=== PATIENT | male | born 1965 | race Caucasian/White ===

== ENCOUNTER 2019-05-07 14:27 | Emergency (ER) ==
[2019-05-07 14:33] VITALS: BP 155/105; TEMP 97.4; BMI 37.5
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
== END 2019-05-07 17:58 | disposition home or self-care (01) ==
LOC: ED 14:27
DX: M54.2 Cervicalgia (principal); V89.2XXA Person injured in unspecified motor-vehicle accident, traffic, initial encounter; Z72.0 Tobacco use
CPT/HCPCS: 99283

== ENCOUNTER 2019-05-12 09:36 | Outpatient (CLI) | END 2019-05-12 09:37 | disposition home or self-care (01) | LOC: RHC-LAB 09:36 → FCC-LAB 09:37 | PROVIDERS: ATTEND Family Medicine | DX: M54.2 Cervicalgia (principal) | CPT/HCPCS: 80306 ==

== ENCOUNTER 2019-05-23 13:00 | Outpatient (RCR) | payer OTHER ==
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
== END 2019-05-24 23:59 ==
PROVIDERS: ATTEND Family Medicine
DX: M54.2 Cervicalgia (principal); M25.511 Pain in right shoulder

== ENCOUNTER 2020-11-08 11:29 | Observation (INO) ==
[2020-11-08 11:42] VITALS: BMI 43.5
[2020-11-08] MEDS ORDERED: LASIX IVP STA (12:30)
--- NOTE | 2020-11-08 12:31 | ED.PDOC ---
General ED Provider: Dr. ANA LILIA SCRUGGS MD Chief Complaint: Shortness of Air Stated Complaint: shortness of breath Time Seen by Provider: 11/08/20 12:22 Mode of Arrival: Wheelchair Information Source: Patient Primary Care Provider: NAKIA JEAN-BAPTISTE MD Nursing and Triage Documentation Reviewed and Agree: Yes Does patient meet sepsis criteria?: No System Inflammatory Response Syndrome: Pulse >90 BPM Sepsis Protocol: For patient's 13 years and over: Temp is 96.8 and below OR 101 and greater Pulse >90 BPM Resp >20/minute Acutely Altered Mental Status Are patient's symptoms suggestive of a new infection, such as: -Pneumonia -Skin, Soft Tissue -Endocarditis -UTI -Bone, Joint Infection -Implantable Device -Acute Abdominal Infection -Wound Infection -Meningitis -Blood Stream Catheter Infection -Unknown Respiratory Complaint Exam Shortness of Air Complaint/Exam Onset/Duration: ~1 week ago Symptoms Are: Worse Timing: Constant Initial Severity: Mild Current Severity: Moderate Character: Reports Dyspnea at rest, Dyspnea on exertion and Orthopnea Aggravating: Reports Movement and Recumbent position Alleviating: Denies None (diuretics) Associated Signs and Symptoms: Reports Edema (bilateral lower extremities, abdomen) Related History: Reports Similar episode (2x previously, ~1 year ago (3 weeks in [place] and 9 days in [facility] for CHF exacerbation)) and Obesity History of Healthcare-Acquired Pneumonia: No Pulmonary Embolism Risk Factors: Reports None Cardiac Risk Factors: Reports Elevated lipids, Diabetes, Hypertension and CHF Pseudomonas Risk Factors: Reports None Home Oxygen Use: No Stridor Present: No Tracheal Deviation: No Subcutaneous Emphysema: No Accessory Muscle Use: No Retractions: Not Present Unable to Speak Full Sentences: No Leg Swelling: Yes Review of Systems Review Of Systems Constitutional: Reports No symptoms Respiratory: Reports Short of air Cardiac: Reports Edema All Other Systems: Reviewed and Negative [facility] Medical History Congestive heart failure Diabetes mellitus Elevated cholesterol History of gastroesophageal reflux (GERD) Hypertension Impetigo Thyroid dysfunction Family History Mother Cardiac disease FATHER Diabetes SISTER Diabetes Other Lupus Social History Smoking and tobacco status: Never smoker Smokeless tobacco user: chewing tobacco Passive smoking exposure: No Quit status: considering quitting Second hand smoke exposure: No Smoking risk assessment performed: No Alcohol intake: never Counseling given: No Counseling provided: none Substance use type: does not use Counseling given: No Counseling provided: none Special jazmyn needs: No Agree to transfusion: Yes Adopted: No Caregiver/support person: No Foster care: No Household members: significant other and family Housing: house Marital status: S SINGLE Lives independently: Yes Daycare: no daycare Number of children: 2 Number of grandchildren: 2 Highest education level completed: 9th grade Financial difficulty paying for basics: somewhat hard service: No senior care: No Current occupational status: disabled Current occupational exposures/hazards: No Surgical History Implantation of cardiac pacemaker Physical Exam Physical Exam Appearance: Reports Well-appearing and Obese Ill-appearing: Moderate Pain Distress: None Eyes: Reports CARLA, EOMI and Conjunctiva clear ENT: Reports Nose normal Neck: Nonsupple (age-appropriate) Respiratory: Reports Airway patent, Breath sounds equal, Breath sounds diminished and Crackles Cardiovascular: Reports RRR GI/: Reports Soft, Nontender, Bowel sounds normal and Other (swelling with mild pitting) Musculoskeletal: Reports Normal strength, ROM intact and Edema (bilateral LEs to the knee) Skin: Reports Warm, Dry and Normal color Neurological: Reports Sensation intact, Motor intact, Cranial nerves intact, Alert and Oriented Psychiatric: Reports Affect appropriate and Mood appropriate Critical Care Note Critical Care Note Total Critical Care Time (mins): 0 Course Course Hematology/Chemistry: 11/08/20 12:10 11/08/20 12:10 Orders, Labs, Meds: Lab Review 11/08/20 11/08/20 11/08/20 12:10 12:10 15:50 WBC 7.39 RBC 5.89 Hgb 16.6 Hct 52.6 H MCV 89.3 MCH 28.2 MCHC 31.6 L RDW Coeff of Vira 14.6 Plt Count 102 L Immature Gran % (Auto) 0.3 Neut % (Auto) 80.6 H Lymph % (Auto) 11.8 [place] % (Auto) 6.5 Eos % (Auto) 0.5 Baso % (Auto) 0.3 Neut # (Auto) 6.0 Lymph # (Auto) 0.9 [place] # (Auto) 0.5 Eos # (Auto) 0.0 Baso # (Auto) 0.0 Immature Gran # (Auto) 0.0 Sodium 132.4 L Potassium 3.07 L Chloride 91.1 L Carbon Dioxide 30.4 H Anion Gap 13.97 BUN 29.0 H Creatinine 1.29 H Estimated GFR (MDRD) 58.00 BUN/Creatinine Ratio 22.48 Glucose 517.2 H* Calcium 8.65 Magnesium 1.82 Total Bilirubin 0.89 AST 24.4 ALT 17.4 Alkaline Phosphatase 131.2 H NT-Pro-B Natriuret Pep 9570.000 H Total Protein 6.90 Albumin 3.67 Globulin 3.23 Albumin/Globulin Ratio 1.13 Adenovirus (PCR) Not detected B. pertussis DNA (PCR) Not detected B.parapertussis DNA PCR Not detected C. pneumoniae DNA (PCR) Not detected Coronavirus OC43 (PCR) Not detected Coronavirus HKU1 (PCR) Not detected Coronavirus 229E (PCR) Not detected Coronavirus NL63 (PCR) Not detected Human Metapneumovir PCR Not detected Influenza Type A (PCR) Not detected Influenza B (RT-PCR) Not detected M. pneumoniae (PCR) Not detected Parainfluenza 1 (PCR) Not detected Parainfluenza 2 (PCR) Not detected Parainfluenza 3 (PCR) Not detected Parainfluenza 4 (PCR) Not detected RSV (PCR) Not detected Entero/Rhino (PCR) Not detected SARS-CoV-2 (PCR) Not detected Orders Category Date Time Status ADMIT OBSERVATION [PLACE PATIENT OBSERVATION] .TO ADMISSION 11/08/20 15:53 Active MEDSURG (MONITORED BED) ACTIVITY .BR with BRP CARE 11/08/20 15:39 Active BLOOD GLUCOSE MONITORING 0630,1100,1700,2100 CARE 11/08/20 15:44 Active GIVE HS SNACK 2100 CARE 11/08/20 15:41 Active INTAKE & OUTPUT Q8HR CARE 11/08/20 15:39 Active TELEMETRY MONITORING TELE CARE 11/08/20 15:54 Active VITAL SIGNS Q8HR CARE 11/08/20 15:39 Completed VTE PREVENTION .SCD On AM/Off PM CARE 11/08/20 15:44 Active VTE PREVENTION .JEISON 24 Hours CARE 11/08/20 15:44 Active ADA 1800 REGIS. DIET DIETARY 11/08/20 Dinner Ordered HS SNACK DIETARY 11/08/20 Dinner Ordered ED ACCUCHECK ASSESSMENT .ONCE EMERGENCY 11/08/20 14:38 Active BASIC METABOLIC PANEL DAILY@0600 LAB 11/09/20 06:00 Ordered BASIC METABOLIC PANEL DAILY@0600 LAB 11/10/20 06:00 Ordered CBC W/ AUTO DIFF DAILY@0600 LAB 11/09/20 06:00 Ordered CBC W/ AUTO DIFF DAILY@0600 LAB 11/10/20 06:00 Ordered CBC W/ AUTO DIFF Stat LAB 11/08/20 12:10 Completed COMPREHENSIVE METABOLIC PANEL Stat LAB 11/08/20 12:10 Completed MAGNESIUM Stat LAB 11/08/20 12:10 Completed NT-PROBNP Stat LAB 11/08/20 12:10 Completed RESPIRATORY PANEL 2.1 (PCR) Stat LAB 11/08/20 15:50 Completed Enoxaparin Sodium [Lovenox] MEDS 11/09/20 09:00 Active 40 mg SUBCUT DAILY Furosemide [Lasix] MEDS 11/08/20 12:30 Discontinued 40 mg IVP ONCE STA Insulin Regular, Human [Humulin R] MEDS 11/08/20 13:13 Discontinued 16 unit IVP ONCE STA Insulin Regular, Human [Humulin R] MEDS 11/08/20 14:42 Discontinued 6 unit SUBCUT ONCE STA Potassium Chloride [K-Dur] MEDS 11/08/20 13:18 Discontinued 40 meq PO ONCE STA Sodium Chloride 0.9% [Sodium Chloride] 1,000 ml MEDS 11/08/20 16:00 Active IV 75 mls/hr RESUSCITATION STATUS Routine OTHERS 11/08/20 15:39 Ordered CHEST, 2 VIEWS PA & LAT Stat RADS 11/08/20 12:30 Completed Medications Generic Name Dose Route Start Last Admin Trade Name Freq PRN Reason Stop Dose Admin Aspirin 81 mg 11/10/20 09:00 Aspirin 81 Mg Tab.Chew PO EVERY OTHER DAY BELA Carvedilol 25 mg 11/08/20 21:00 11/08/20 21:08 Carvedilol 12.5 Mg Tablet PO 25 mg BID BELA Administration Clonidine 0.05 mg 11/08/20 21:00 Clonidine Hcl 0.1 Mg Tablet PO TID PRN SBP>160 Enoxaparin Sodium 40 mg 11/09/20 09:00 Enoxaparin Sodium 40 Mg/0.4 Ml Syr SUBCUT DAILY BELA Furosemide 20 mg 11/08/20 21:00 11/08/20 21:08 Furosemide Inj 20 Mg/2 Ml Vial IVP 20 mg Q6H BELA Administration Gabapentin 300 mg 11/08/20 21:00 11/08/20 21:09 Gabapentin 300 Mg Capsule PO 300 mg TID BELA Administration Sodium Chloride 1,000 mls @ 75 mls/hr 11/08/20 16:00 11/08/20 18:53 Sodium Chloride IV 75 mls/hr .[id number] BELA Administration Insulin Glargine 70 unit 11/09/20 09:00 Insulin Glargine,Hum.Rec.Anlog 100 Units/Ml SUBCUT DAILY BELA Insulin Human Regular 0 unit 11/08/20 18:15 11/08/20 19:03 Insulin Regular, Human 100 Unit/Ml (3ml) Vial SUBCUT 4 unit PRN PRN Administration Hyperglycemia Protocol Levothyroxine Sodium 150 mcg 11/09/20 06:30 Levothyroxine Sodium 50 Mcg Tablet PO DAILY@0630 BELA Metformin HCl 1,000 mg 11/08/20 21:00 11/08/20 21:08 Metformin Hcl 500 Mg Tablet PO 1,000 mg BID BELA Administration Pravastatin Sodium 80 mg 11/09/20 09:00 Pravastatin Sodium 40 Mg Tablet PO DAILY BELA Sacubitril/Valsartan 2 each 11/08/20 21:00 11/08/20 21:23 Sacubitril/Valsartan 1 Each Tablet PO 2 each BID BELA Administration Discontinued Medications Generic Name Dose Route Start Last Admin Trade Name Freq PRN Reason Stop Dose Admin Furosemide 40 mg 11/08/20 12:30 11/08/20 12:45 Furosemide Inj 40 Mg/4 Ml Vial IVP 11/08/20 12:31 40 mg ONCE STA Administration Insulin Human Regular 16 unit 11/08/20 13:13 11/08/20 13:31 Insulin Regular, Human 100 Unit/Ml (3ml) Vial IVP 11/08/20 13:14 16 unit ONCE STA Administration Insulin Human Regular 6 unit 11/08/20 14:42 11/08/20 14:57 Insulin Regular, Human 100 Unit/Ml (3ml) Vial SUBCUT 11/08/20 14:43 6 unit ONCE STA Administration Potassium Chloride 40 meq 11/08/20 13:18 11/08/20 13:31 Potassium Chloride 20 Meq Tab PO 11/08/20 13:19 40 meq ONCE STA Administration Labs posted, consistent with CHF exacerbation/Diabetic Hyperglycemia/CRI. He was given IV Lasix/Insulin. His serum Glucose went from 517-298. He was given another 6 units SC. At about 2 hours post-lasix he had not yet managed to get 300mL out. He was asked if he would be willing to stay overnight, which he was. Patient was placed on Observation. He was in good condition when he was transported from the ED to the floor. Vital Signs: Temp Pulse Resp BP Pulse Ox 11/08/20 11:29 97.2 F L 123 H 22 135/101 H 95 Discharge Plan Discharge Patient Disposition: PLACED OBSERVATION ED Provider: ANA LILIA SCRUGGS Condition: Good Physician Progress Note: []
[2020-11-08 12:45] LABS: BASOPHILS % (AUTO) 0.3 % (0.0-3.0); EOSINOPHILS % (AUTO) 0.5 % (0.0-7.0); HEMATOCRIT 52.6 % (42.0-52.0); HEMOGLOBIN 16.6 g/dl (14.0-18.0); IMMATURE GRANULOCYTE % (AUTO) 0.3 % (0.0-5.0); LYMPHOCYTES # (AUTO) 0.9 K/uL (0.60-3.4); LYMPHOCYTES % (AUTO) 11.8 (10.0-50.0); MEAN CORPUSCULAR HEMOGLOBIN 28.2 pg (27.0-31.0); MEAN CORPUSCULAR HGB CONC 31.6 (31.8-35.4); MEAN CORPUSCULAR VOLUME 89.3 fl (80.0-94.0); MONOCYTES # (AUTO) 0.5 K/uL (0.4-2.0); MONOCYTES % (AUTO) 6.5 (0-10); NEUTROPHILS % (AUTO) 80.6 % (42.2-75.2); PLATELET COUNT 102 10^3/uL (140-440); RDW COEFFICIENT OF VARIATION 14.6 % (11.6-14.8); RED BLOOD COUNT 5.89 10^6/ul (4.70-6.10); WHITE BLOOD COUNT 7.39 K/ul (4.2-10.2)
[2020-11-08 12:59] LABS: ALANINE AMINOTRANSFERASE 17.4 U/L (0-50); ALBUMIN 3.67 g/dL (3.5-5.0); ALKALINE PHOSPHATASE 131.2 U/L (38-126); ASPARTATE AMINO TRANSFERASE 24.4 U/L (17-59); BILIRUBIN,TOTAL 0.89 mg/dL (0.2-1.3); CALCIUM 8.65 mg/dL (8.4-10.2); CARBON DIOXIDE 30.4 mmol/L (22-30.0); CHLORIDE 91.1 mmol/L (98-107); CREATININE 1.29 mg/dL (0.60-1.10); MAGNESIUM 1.82 mg/dL (1.6-2.3); POTASSIUM 3.07 mmol/L (3.5-5.1); SODIUM 132.4 mmol/L (134.5-145); TOTAL PROTEIN 6.9 g/dL (6.3-8.2)
--- NOTE | 2020-11-08 12:59 | DI ---
EXAM: CHEST FRONTAL AND LATERAL VIEWS HISTORY: Shortness of breath. COMPARISON: 05/16/2014 FINDINGS: Stable cardiomegaly. Pacemaker unit has been placed since prior study. Patient position and low lung volumes limits the exam. No findings characteristic of active congestive heart failure- fluid overload identified. No definite consolidated pneumonia. There is no visible pleural fluid o r pneumothorax. IMPRESSION: 1. Cardiomegaly. No definite consolidated pneumonia or vascular congestion.
[2020-11-08 13:07] LABS: GLUCOSE 517.2 mg/dL (74-106)
[2020-11-08] MEDS ORDERED: HUMULIN R IVP STA (13:13)
[2020-11-08] MEDS ORDERED: K-DUR PO STA (13:18)
[2020-11-08] MEDS ORDERED: HUMULIN R SUBCUT STA (14:42)
[2020-11-08] MEDS: SODIUM CHLORIDE 1,000 ML IV SCH (18:53)
[2020-11-08] MEDS: HUMULIN R SUBCUT PRN (19:03)
[2020-11-08] MEDS ORDERED: CATAPRES PO PRN (21:00)
[2020-11-08] MEDS ORDERED: COREG PO SCH (21:00)
[2020-11-08] MEDS ORDERED: GLUCOPHAGE PO SCH (21:00)
[2020-11-08] MEDS: LASIX IVP SCH (21:08)
[2020-11-08] MEDS: NEURONTIN PO SCH (21:09)
[2020-11-08] MEDS: ENTRESTO 24 MG-26 MG TABLET PO SCH (21:23)
[2020-11-09] MEDS: LASIX IVP SCH ×2 (04:13→08:17)
[2020-11-09 05:21] LABS: BASOPHILS % (AUTO) 0.3 % (0.0-3.0); EOSINOPHILS # (AUTO) 0.1 K/ul (0.0-0.7); EOSINOPHILS % (AUTO) 1.5 % (0.0-7.0); HEMATOCRIT 46.5 % (42.0-52.0); HEMOGLOBIN 14.1 g/dl (14.0-18.0); IMMATURE GRANULOCYTE % (AUTO) 0.3 % (0.0-5.0); LYMPHOCYTES # (AUTO) 1.1 K/uL (0.60-3.4); LYMPHOCYTES % (AUTO) 18.2 (10.0-50.0); MEAN CORPUSCULAR HEMOGLOBIN 27.2 pg (27.0-31.0); MEAN CORPUSCULAR HGB CONC 30.3 (31.8-35.4); MEAN CORPUSCULAR VOLUME 89.6 fl (80.0-94.0); MONOCYTES # (AUTO) 0.6 K/uL (0.4-2.0); MONOCYTES % (AUTO) 9.4 (0-10); NEUTROPHILS # (AUTO) 4.3 K/ul (2.0-6.9); NEUTROPHILS % (AUTO) 70.3 % (42.2-75.2); PLATELET COUNT 95 10^3/uL (140-440); RDW COEFFICIENT OF VARIATION 14.6 % (11.6-14.8); RED BLOOD COUNT 5.19 10^6/ul (4.70-6.10); WHITE BLOOD COUNT 6.06 K/ul (4.2-10.2)
[2020-11-09 05:36] LABS: BLOOD UREA NITROGEN 32.4 mg/dL (9-20); CALCIUM 7.95 mg/dL (8.4-10.2); CARBON DIOXIDE 28.2 mmol/L (22-30.0); CHLORIDE 99.1 mmol/L (98-107); CREATININE 1.26 mg/dL (0.60-1.10); GLUCOSE 166.5 mg/dL (74-106); POTASSIUM 3.28 mmol/L (3.5-5.1)
[2020-11-09] MEDS: HUMULIN R SUBCUT PRN (06:02)
[2020-11-09 06:05] VITALS: TEMP 97.6
[2020-11-09] MEDS ORDERED: SYNTHROID PO SCH (06:30)
[2020-11-09] MEDS: NEURONTIN PO SCH (08:15)
[2020-11-09] MEDS: SODIUM CHLORIDE 1,000 ML IV SCH (08:17)
[2020-11-09] MEDS: ENTRESTO 24 MG-26 MG TABLET PO SCH (08:19)
[2020-11-09] MEDS ORDERED: COREG PO SCH (08:30)
[2020-11-09] MEDS ORDERED: GLUCOPHAGE PO SCH (08:30)
[2020-11-09] MEDS ORDERED: LANTUS SUBCUT SCH (09:00)
[2020-11-09] MEDS ORDERED: LOVENOX SUBCUT SCH (09:00)
[2020-11-09] MEDS ORDERED: PRAVACHOL PO SCH (09:00)
[2020-11-09] MEDS ORDERED: SODIUM CHLORIDE 500 ML IV STA (10:07)
[2020-11-09] MEDS ORDERED: DOPAMINE 400 MG/250 ML D5W 400 MG/250 ML BAG IV SCH (11:30)
[2020-11-09 13:09] VITALS: BP 106/74
[2020-11-10] MEDS ORDERED: ASPIRIN CHEWABLE PO SCH (09:00)
--- NOTE | 2020-11-13 18:34 | PCM.HOSP ---
Observation Care Discharge [id number] OBS Care Discharge (15059): Discharge summary dictated
--- NOTE | 2020-11-17 13:18 | DS ---
DATE OF SERVICE: 11/09/20 ADMITTING DIAGNOSIS: (11/08/20) 1. FLUID RETENTION 2. CONGESTIVE HEART FAILURE 3. CARDIOMYOPATHY FINAL DIAGNOSIS: (11/09/20) 1. CHRONIC CONGESTIVE HEART FAILURE 2. TYPE 2 DIABETES MELLITUS, INSULIN DEPENDENT 3. HYPERTENSION 4. HYPERCHOLESTEROLEMIA 5. SERIOUS CONDITION. PREVIOUSLY HAS RECEIVED PRIMARY CARE FROM DR. NAKIA JEAN-BAPTISTE; HOWEVER, IT APPEARS HE HAS NOT BEEN BACK TO SEE HIM SINCE IN FEBRUARY OF 2020. AT THE TIME OF HIS LAST VISIT THERE, HE WAS REFERRED TO CARDIOLOGY IN [place] FOR FURTHER EVALUATION OF THIS ADVANCED CARDIOMYOPATHY. His medications were reviewed. I spoke with Dr. Jean-Baptiste and he indicated that at the point of his visit back in February, he had been referred back to Cardiology because of his blockage and necessity for procedure. Apparently Home cardiologists will not see him due to his insurance. At the time of his visit on September, he was diagnosed with CHF, hypertrophic cardiomyopathy, hypertension, diabetes mellitus type 2. Currently the patient denies chest pain, pressure or tightness. He complains of shortness of breath. It is noted that he previously had an echocardiogram that showed an ejection fraction, diminished less than 20% and apparently he previously did not go to Cardiac Cath as he stated he could not afford it. Then with visit in February he was referred back to Dr. Poole. The patient relates to me that at once he was referred to [facility] and they did not do any type of cardiac workup or evaluation. PHYSICAL EXAMINATION: Reveals a male patient appearing older than his stated age. He is basically alert, oriented times three in no acute distress. His respirations are easy and nonlabored. HEENT: Clear. NECK: Soft and supple. No evidence of jugular venous distention nor was hepatojugular reflex elicited. LUNGS: Showed diminished breath sounds in the bases but no crackles, wheezes or rhonchi. CARDIAC: Regular rate and rhythm. ABDOMEN: Obese, soft and markedly distended, suspicious for hepatomegaly and ascites. IMPRESSION: 1. CONGESTIVE HEART FAILURE 2. CARDIOMEGALY 3. HYPOTENSION 4. HYPOTHYROIDISM PLAN: I have explained to the patient the necessity to transfer him to a tertiary center which has cardiology service. Attempts were made to refer him back to Cardiology in [place] however they have a long waiting list and it would be a prolonged period of time before they would be able to accept him. [facility] did accept him but they are real busy at the hospital. I contacted Dr. Chambers at [facility] who accepted the patient in transfer. Prior to transfer because his blood pressure was running low in the 70 range systolic, he was started on a Dopamine drip and titrated up to 5 mcgs and eventually up to 10 mcgs to get blood pressure stable in order to be able to be transferred. He was discharged from [facility] and transferred to [facility] in serious condition but stable at time of his discharge. All diagnostic laboratory studies are found in the hospital chart for your perusal. FINAL DISPOSITION: As indicated above. MTDD
== END 2020-11-09 13:58 | disposition short-term general hospital (02) ==
LOC: MEDSURG A 11:29 → ED 11:29 → MEDSURG A 17:16
PROVIDERS: ADMIT Family Medicine Addiction Medicine; ATTEND Emergency Medicine
DX: I42.9 Cardiomyopathy, unspecified; R60.9 Edema, unspecified; E03.9 Hypothyroidism, unspecified; I10 Essential (primary) hypertension; Z20.822 Contact with and (suspected) exposure to COVID-19; E11.9 Type 2 diabetes mellitus without complications; E78.00 Pure hypercholesterolemia, unspecified; R06.02 Shortness of breath